=== PATIENT | female | born 1955 | race Caucasian/White ===

== ENCOUNTER 2018-05-06 08:10 | Emergency (ER) | payer BC ==
[~2018-05-06] VITALS: Ht 165.1 cm; Wt 122.5 kg
[~2018-05-06 08:10] MED LIST: AMLO10 PO; ATEN25; FURO40; FURO40 PO; GLIM2 PO; LOSA50 PO; METF500; METF500 PO; POTA10T PO; POTA8
[2018-05-06 09:25] LABS: BASOPHILS ABSOLUTE AUTO 0.05 K/mm3 (0.00-0.23); BASOPHILS PERCENT AUTO 1 % (0-2); EOSINOPHILS ABSOLUTE AUTO 0.22 K/mm3 (0.00-0.68); EOSINOPHILS PERCENT AUTO 3 % (0-6); Hemoglobin 12.6 g/dL (11.5-16.0); IMMATURE GRAN ABSOLUTE AUTO 0.04 K/mm3 (0.00-0.10); IMMATURE GRAN PERCENT AUTO 1 % (0-1); LYMPHOCYTES ABSOLUTE AUTO 2.14 K/mm3 (0.84-5.20); LYMPHOCYTES PERCENT AUTO 26 % (21-46); MONOCYTES PERCENT AUTO 5 % (4-13); Mean Corpuscular HGB 28.3 pg (26.0-34.0); Mean Corpuscular HGB Conc 31.5 g/dL (31.5-36.5); Mean Corpuscular Volume 90 fL (80-100); Mean Platelet Volume 10.5 fL (9.1-12.4); NEUTROPHILS ABSOLUTE AUTO 5.49 K/mm3 (1.96-9.15); NEUTROPHILS PERCENT AUTO 66 % (41-73); Platelet Count 227 K/mm3 (150-400); RDW Standard Deviation 42.7 fL (35.1-46.3); Red Blood Cell Count 4.46 M/mm3 (3.80-5.20); White Blood Cell Count 8.34 K/mm3 (4.00-11.30)
[2018-05-06 09:45] LABS: Anion Gap 10 mmol/L (6-16); Blood Urea Nitrogen 11 mg/dL (8-24); Bun/Creatinine Ratio 20.9 (12.0-20.0); CO2, Blood 27 mmol/L (21-32); Calcium, Blood 8.9 mg/dL (8.5-10.1); Chloride, Blood 102 mmol/L (98-108); Creatinine, Blood 0.53 mg/dL (0.40-1.00); Glomerular Filtration Rate >60 (60-); Glucose, Blood 293 mg/dL (70-99); Potassium, Blood 3.7 mmol/L (3.5-5.5); Sodium, Blood 139 mmol/L (136-145)
[2018-05-06] MEDS ORDERED: METO50ER PO (10:00)
[2018-05-06 10:01] LABS: Appearance, Urine Clear (Clear); Bilirubin, Urine Neg (Neg); Blood, Urine Neg (Neg); Color, Urine Yellow (P-Yellow); Glucose Qualitative, Urine 4+ (Neg); Ketones, Urine 1+ (Neg); Leukocyte Esterase, Urine Neg (Neg); Nitrite, Urine Neg (Neg); Protein, Urine Neg (Neg); Urobilinogen, Urine NORM (Normal); pH, Urine 6.5 (5.0-8.0)
[2018-05-06] MEDS ORDERED: OLME20 PO (10:01)
[2018-05-06] MEDS ORDERED: Zofran4 MG PO (11:06)
[2018-05-06] MEDS ORDERED: Motion Sickness25 M1 PO (11:06)
[2018-05-06] MEDS ORDERED: DIAZ2 PO (11:06)
== END 2018-05-06 11:31 | disposition home or self-care (01) ==
LOC: ER 08:10
PROVIDERS: Emergency Medicine
DX: H83.09 Labyrinthitis, unspecified ear (principal); Z88.8 Allergy status to other drugs, medicaments and biological substances; Z79.899 Other long term (current) drug therapy; Z79.84 Long term (current) use of oral hypoglycemic drugs; I10 Essential (primary) hypertension; E11.9 Type 2 diabetes mellitus without complications
CPT/HCPCS: 71045; 80048; 81003; 85025; 93005; 93010; 96374; 96375; 99284-25; J2060; J2405

== ENCOUNTER → 2021-04-17 | Outpatient (CLI) | payer MEDICARE, BC ==
[~2021-04-17] MED LIST changes: +DIAZ2 PO; +METO50ER PO; +Motion Sickness25 M1 PO; +OLME20 PO; +Zofran4 MG PO
== END | disposition home or self-care (01) ==
LOC: LAB SHORT 09:45
DX: R30.0 Dysuria (principal); R82.90 Unspecified abnormal findings in urine
CPT/HCPCS: 87077; 87086; 87186

== ENCOUNTER → 2021-08-30 | Outpatient (CLI) | payer MEDICARE, BC | END | disposition home or self-care (01) | LOC: LAB SHORT 09:50 → LAB 09:50 | DX: E11.65 Type 2 diabetes mellitus with hyperglycemia (principal) | CPT/HCPCS: 82043; 83036 ==

== ENCOUNTER 2023-11-26 15:43 | Inpatient (IN) | payer OTHER ==
[~2023-11-26] VITALS: Ht 165.1 cm; Wt 84.2 kg
[~2023-11-26 15:43] MED LIST changes: +K-TAB ER20 ME1 PO; -POTA10T PO
[2023-11-26] MEDS ORDERED: Morphine Sulfate 4 MG/1 ML Injection IV ONE (16:25)
[2023-11-26] MEDS ORDERED: Vancomycin HCL 1,500 MG in NS 250 ML IV ONE (16:25)
[2023-11-26 17:20] LABS: BASOPHILS ABSOLUTE AUTO 0.07 K/mm3 (0.00-0.23); BASOPHILS PERCENT AUTO 1 % (0-2); EOSINOPHILS ABSOLUTE AUTO 0.36 K/mm3 (0.00-0.68); EOSINOPHILS PERCENT AUTO 3 % (0-6); Hematocrit 39.9 % (33.0-51.0); Hemoglobin 12.5 g/dL (11.5-16.0); IMMATURE GRAN ABSOLUTE AUTO 0.26 K/mm3 (0.00-0.10); IMMATURE GRAN PERCENT AUTO 2 % (0-1); LYMPHOCYTES PERCENT AUTO 13 % (21-46); MONOCYTES ABSOLUTE AUTO 1.04 K/mm3 (0.16-1.47); MONOCYTES PERCENT AUTO 7 % (4-13); Mean Corpuscular HGB 27.7 pg (26.0-34.0); Mean Corpuscular HGB Conc 31.3 g/dL (31.5-36.5); Mean Corpuscular Volume 88 fL (80-100); Mean Platelet Volume 10.2 fL (9.1-12.4); NEUTROPHILS ABSOLUTE AUTO 10.72 K/mm3 (1.96-9.15); NEUTROPHILS PERCENT AUTO 75 % (41-73); NRBC ABSOLUTE 0.04 K/mm3 (0.00-0.02); NRBC Auto 0.3 /100 WBC (0.0-0.2); Platelet Count 382 K/mm3 (150-400); RDW Coefficient Variation 17.1 % (11.7-14.2); RDW Standard Deviation 54.4 fL (35.1-46.3); Red Blood Cell Count 4.52 M/mm3 (3.80-5.20); White Blood Cell Count 14.35 K/mm3 (4.00-11.30)
[2023-11-26 17:51] LABS: Anion Gap 6 mmol/L (3-11); Blood Urea Nitrogen 31 mg/dL (8-24); Bun/Creatinine Ratio 39.2 (12.0-20.0); C-REACTIVE PROTEIN, EXT RANGE >19.000 mg/dL (0.000-0.300); CO2, Blood 30 mmol/L (21-32); Calcium, Blood 9.8 mg/dL (8.5-10.1); Chloride, Blood 102 mmol/L (98-108); Creatinine, Blood 0.79 mg/dL (0.40-1.00); Glomerular Filtration Rate 81 (60-); Glucose, Blood 232 mg/dL (70-99); Potassium, Blood 4.5 mmol/L (3.5-5.5); Sodium, Blood 133 mmol/L (136-145)
[2023-11-26] MEDS ORDERED: METO25ER PO ×2 (18:33→18:34)
[2023-11-26] MEDS ORDERED: AMIODARONE HCL200 M1 PO (18:34)
[2023-11-26] MEDS ORDERED: DILT30 PO (18:34)
[2023-11-26] MEDS ORDERED: ELIQUIS5 M2 PO (18:34)
[2023-11-26] MEDS ORDERED: LISI20 PO (18:35)
[2023-11-26] MEDS ORDERED: FURO20 PO (18:35)
[2023-11-26] MEDS ORDERED: Flomax0.4 MG PO (18:36)
[2023-11-26] MEDS ORDERED: Acetaminophen 325 MG TABLET PO PRN (22:25)
[2023-11-26 22:46] LABS: Source, Urine Foley catheter
[2023-11-26 22:52] LABS: Bilirubin, Urine Neg (Neg); Blood, Urine 3+ (Neg); Glucose Qualitative, Urine Neg (Neg); Ketones, Urine Neg (Neg); Leukocyte Esterase, Urine 3+ (Neg); Nitrite, Urine Pos (Neg); Protein, Urine 1+ (Neg); Urobilinogen, Urine 1+ (Normal)
[2023-11-26] MEDS ORDERED: NS 1,000 ML IV SCH (23:00)
[2023-11-26] MEDS ORDERED: Lactobacil 2-S.Thermo-Bifido 1 1 Cap PO SCH (23:00)
[2023-11-26 23:06] LABS: Amorphous Light (0-Heavy); Appearance, Urine Hazy (Clear); Bacteria Mod /hpf; Color, Urine Yellow (P-Yellow); Red Blood Cells, Urine 0-2 /hpf (0-2); Squamous Epithelial Cells Not Seen /hpf (Few); White Blood Cells, Urine TNTC /hpf (0-5)
[2023-11-27] MEDS ORDERED: Ampicillin Sod/Sulbactam Sod 1.5 GM in NS 100 ML IV SCH (00:42)
[2023-11-27 02:05] LABS: BASOPHILS ABSOLUTE AUTO 0.12 K/mm3 (0.00-0.23); BASOPHILS PERCENT AUTO 1 % (0-2); EOSINOPHILS ABSOLUTE AUTO 0.42 K/mm3 (0.00-0.68); EOSINOPHILS PERCENT AUTO 4 % (0-6); Hematocrit 36.8 % (33.0-51.0); Hemoglobin 11.2 g/dL (11.5-16.0); IMMATURE GRAN ABSOLUTE AUTO 0.25 K/mm3 (0.00-0.10); IMMATURE GRAN PERCENT AUTO 2 % (0-1); LYMPHOCYTES ABSOLUTE AUTO 1.89 K/mm3 (0.84-5.20); LYMPHOCYTES PERCENT AUTO 16 % (21-46); MONOCYTES ABSOLUTE AUTO 0.87 K/mm3 (0.16-1.47); MONOCYTES PERCENT AUTO 7 % (4-13); Mean Corpuscular HGB 28.1 pg (26.0-34.0); Mean Corpuscular HGB Conc 30.4 g/dL (31.5-36.5); Mean Corpuscular Volume 92 fL (80-100); Mean Platelet Volume 9.9 fL (9.1-12.4); NEUTROPHILS PERCENT AUTO 70 % (41-73); NRBC ABSOLUTE 0.03 K/mm3 (0.00-0.02); NRBC Auto 0.3 /100 WBC (0.0-0.2); Platelet Count 348 K/mm3 (150-400); RDW Coefficient Variation 17.3 % (11.7-14.2); RDW Standard Deviation 58.9 fL (35.1-46.3); Red Blood Cell Count 3.99 M/mm3 (3.80-5.20); White Blood Cell Count 11.75 K/mm3 (4.00-11.30)
[2023-11-27 02:47] VITALS: BP 108/64
[2023-11-27] MEDS ORDERED: BASAGLAR K100 UNIT/1 SC (03:24)
--- NOTE | 2023-11-27 05:19 | NUR ---
PT O2 SAT DROPPING TO 75% WHILE PT SLEEPING. PT ABLE TO BE WOKEN AND IS AOX4 AND NO C/O OF SOB. PT SATS IMPROVE WHILE AWAKE. PT REPOSITIONED WITH HOB RAISED. PT MAINTAINED O2 SATS LOW 90S BUT NOW IS DROPPING BACK INTO MID 70S WHILE ASLEEP. 2L O2 PLACED BY NASAL CANNULA. RESIDENT CALLED AND AWAITING CALL BACK AT THIS TIME.
--- NOTE | 2023-11-27 06:21 | NUR ---
RECEIVED PT FROM ED BY STRETCHER. PT ACCOMPANIED BY FAMILY. PT IS AOX4. PT WAS TRANSFERRED TO BED. WOUND PHOTOS TAKEN OF LARGE PRESSURE ULCER TO PT BUTTOCKS/SACRUM. PT DID HAVE AN INCONTINENT STOOL ON ARRIVAL AND WAS CLEANED, LINENS CHANGED. PT ARRIVED WITH WAGNER IN PLACE, URINE IS YELLOW AND HAZY. PT AND FAMILY ABLE TO ANSWER ALL ADMIT QUESTIONS. PT WAS PLACED IN CONTACT PRECAUTIONS FOR POSSIBLE MRSA/ HX OF ESBL IN URINE/ POSSIBLE C.DIFF (HX DIARRHEA X3 DAYS). PT DID DESAT WHILE SLEEPING AND IS NOW ON 2LO2. PT WAS MAINTAINING GOOD O2 SATS WHILE AWAKE.
--- NOTE | 2023-11-27 06:29 | NUR ---
PT WAS IN A.FIB UPON ADMIT BUT HAS SINCE CONVERTED BACK TO A SINUS RHYTHM IN THE 80S.
[2023-11-27 07:26] LABS: Albumin, Blood 1.8 g/dL (3.4-5.0); Albumin/Globulin Ratio 0.4 (0.8-1.8); Bilirubin, Total 0.6 mg/dL (0.1-1.0); Bun/Creatinine Ratio 34.1 (12.0-20.0); Creatinine, Blood 0.79 mg/dL (0.40-1.00); Globulin, Blood 4.2 g/dL (2.2-4.0); Potassium, Blood 4.1 mmol/L (3.5-5.5)
[2023-11-27 08:11] VITALS: BP 86/53
[2023-11-27 08:50] VITALS: BP 103/50
[2023-11-27] MEDS ORDERED: Tamsulosin HCl 0.4 MG Cap PO SCH (09:00)
[2023-11-27] MEDS ORDERED: Enoxaparin 40 MG/0.4 ML SYR SC SCH (09:00)
[2023-11-27] MEDS ORDERED: Amiodarone HCl 200 MG Tab PO SCH (09:00)
[2023-11-27] MEDS ORDERED: Lisinopril 20 MG Tab PO SCH (09:00)
[2023-11-27] MEDS ORDERED: Apixaban 5 MG Tab PO SCH (09:00)
[2023-11-27 12:43] VITALS: BP 112/51
[2023-11-27 12:55] LABS: Adenovirus F 40/41 Not Detected (NOT DETECT); Astrovirus Not Detected (NOT DETECT); Campylobacter Sp Not Detected (NOT DETECT); Cryptosporidium Not Detected (NOT DETECT); Cyclospora Cayetanensis Not Detected (NOT DETECT); E. Coli O157 Not Detected (NOT DETECT); Entamoeba Histolytica Not Detected (NOT DETECT); Enteroaggregative E. coli-EAEC Not Detected (NOT DETECT); Enteropathogenic E. coli-EPEC Not Detected (NOT DETECT); Enterotoxigenic E. coli-ETEC Not Detected (NOT DETECT); Giardia Lamblia Not Detected (NOT DETECT); Norovirus GI/GII Not Detected (NOT DETECT); Plesiomonas Shigelloides Not Detected (NOT DETECT); Rotavirus A Not Detected (NOT DETECT); Salmonella Sp Not Detected (NOT DETECT); Sapovirus Not Detected (NOT DETECT); Shiga Toxin-prod E. coli-STEC Not Detected (NOT DETECT); Shigella/Enteroin E. coli-EIEC Not Detected (NOT DETECT); Vibrio Cholerae Not Detected (NOT DETECT); Vibrio Sp Not Detected (NOT DETECT); Yersinia Enterocolitica Not Detected (NOT DETECT)
[2023-11-27] MEDS ORDERED: HYDRA50 PO (12:57)
[2023-11-27] MEDS ORDERED: HydrALAZINE HCl 50 MG Tab PO PRN (15:20)
[2023-11-27 16:45] VITALS: BP 106/48
--- NOTE | 2023-11-27 17:18 | NUR ---
THIS RN AT BEDSIDE TO TURN PT AND PERFORM PAPI CARE. PT HAS ANOTHER EPISODE OF INCONTINENCE. PT C/O PAIN FROM SORES ON BUTTOCKS. A MODERATE AMOUNT OF BRIGHT RED BLOOD NOTICED ON PAPI AREA THAT APPEARS TO BE COMING FROM VAGINAL AREA. NO BLOOD SEEN IN WAGNER TUBING. NO VISABLE SORES OR CUTS SEEN A SOURCE OF BLEEDING. PT DENIES ANY ABD OR PELVIC PAIN. WAGNER IS DRAINING WELL. DR RENNER CALLED AND IS GOING TO DC LOVENOX, ORDER A REPEAT CBC AND A PELVIC ULTRASOUND. PT NOT IN ANY DISTRESS AT THIS TIME.
[2023-11-27 18:00] LABS: BASOPHILS ABSOLUTE AUTO 0.11 K/mm3 (0.00-0.23); BASOPHILS PERCENT AUTO 1 % (0-2); EOSINOPHILS ABSOLUTE AUTO 0.51 K/mm3 (0.00-0.68); EOSINOPHILS PERCENT AUTO 5 % (0-6); Hematocrit 41.5 % (33.0-51.0); Hemoglobin 12.9 g/dL (11.5-16.0); IMMATURE GRAN ABSOLUTE AUTO 0.41 K/mm3 (0.00-0.10); IMMATURE GRAN PERCENT AUTO 4 % (0-1); LYMPHOCYTES ABSOLUTE AUTO 1.62 K/mm3 (0.84-5.20); LYMPHOCYTES PERCENT AUTO 15 % (21-46); MONOCYTES ABSOLUTE AUTO 0.96 K/mm3 (0.16-1.47); MONOCYTES PERCENT AUTO 9 % (4-13); Mean Corpuscular HGB 27.7 pg (26.0-34.0); Mean Corpuscular HGB Conc 31.1 g/dL (31.5-36.5); Mean Corpuscular Volume 89 fL (80-100); Mean Platelet Volume 9.4 fL (9.1-12.4); NEUTROPHILS ABSOLUTE AUTO 7.46 K/mm3 (1.96-9.15); NEUTROPHILS PERCENT AUTO 67 % (41-73); NRBC ABSOLUTE 0.02 K/mm3 (0.00-0.02); NRBC Auto 0.2 /100 WBC (0.0-0.2); Platelet Count 385 K/mm3 (150-400); RDW Coefficient Variation 17.2 % (11.7-14.2); Red Blood Cell Count 4.65 M/mm3 (3.80-5.20); White Blood Cell Count 11.07 K/mm3 (4.00-11.30)
--- NOTE | 2023-11-27 18:44 | NUR ---
PT ALERT AND ORIENTED X4. PT WAS HYPOTENSIVE OFF AND ON THROUGOUT THE SHIFT. PROVIDER AWARE. PT HAS AN INDWELLING WAGNER THAT HAS BEEN DRAINING ALL DAY. PT CONTINUED TO HAVE SEVERAL LOOSE INCONTINENT STOOLS THROUGHOUT SHIFT. PT HAS BEEN TURNED Q2 HOURS AND WOUNDS HAVE BEEN LEFT OPEN TO DRY OUT. PT CAME AND WORKED WITH PT AND STATED THAT SHE NEEDS TO STAY A LIFT TRANSFER. SEE PRIOR NOTED FOR FURTHER CAHNGES. NO OTHER MEDICAL CHANGES HAPPENED DURING SHIFT AND PT IS NOT IN ANY DISTRESS.
[2023-11-27 19:59] VITALS: BP 110/45
[2023-11-27] MEDS ORDERED: Banana Flakes/Tos 1 EA Powder Pack PO SCH (21:00)
[2023-11-27] MEDS ORDERED: Insulin Glargine-Yfgn 100 Unit/mL 3 ML SYR SC SCH (21:00)
[2023-11-27] MEDS ORDERED: Arginine/Glutamine/Calcium Hmb 1 Packet PO SCH (21:00)
[2023-11-27] MEDS ORDERED: Enoxaparin 100 MG/ML 1ML SYR SC SCH (21:00)
[2023-11-27] MEDS ORDERED: NS 250 ML IV PRN (22:00)
[2023-11-28 03:04] VITALS: BP 118/50
[2023-11-28] MEDS ORDERED: NS 100 ML IV ONE ×4 (03:18→23:29)
[2023-11-28] MEDS ORDERED: Ampicillin Sod/Sulbactam Sod 1.5 GM ONE ×4 (03:18→23:29)
--- NOTE | 2023-11-28 04:48 | NUR ---
SHIFT SUMMARY NOC PT A/O X 4. TRANSFER FROM PCU 07. PLEASANT AND COOPERATIVE WITH CARE. VSS. PT HAS STAGE 2 PRESSURE INJURY ON BL BUTTOCKS OPEN TO AIR, Q2H TURNS. HAS WAGNER IN PLACE DRAINING TO GRAVITY. ON TELE SINUS RHYTHM IN 70'S -80'S. PT HAS NOT REQUIRED AN PAIN RX FOR PAIN IN BUTTOCKS. PT HAS SOME MILD VAGINAL BLEEDING THAT STARTED YESTERDAY, IS AWARE. PT CURRENTLY RESTING WITH BED IN LOWEST POSITION, AND CALL LIGHT WITHIN REACH.
[2023-11-28 05:44] LABS: Hematocrit 37.4 % (33.0-51.0); Hemoglobin 11.5 g/dL (11.5-16.0); Mean Corpuscular HGB 27.8 pg (26.0-34.0); Mean Corpuscular HGB Conc 30.7 g/dL (31.5-36.5); Mean Corpuscular Volume 90 fL (80-100); Mean Platelet Volume 9.8 fL (9.1-12.4); Platelet Count 417 K/mm3 (150-400); RDW Coefficient Variation 17.2 % (11.7-14.2); RDW Standard Deviation 57.2 fL (35.1-46.3); Red Blood Cell Count 4.14 M/mm3 (3.80-5.20)
[2023-11-28 06:07] LABS: Albumin, Blood 1.7 g/dL (3.4-5.0); Albumin/Globulin Ratio 0.4 (0.8-1.8); Bilirubin, Total 0.5 mg/dL (0.1-1.0); Calcium, Blood 8.9 mg/dL (8.5-10.1); Creatinine, Blood 0.61 mg/dL (0.40-1.00); Potassium, Blood 3.8 mmol/L (3.5-5.5); Total Protein, Blood 5.7 g/dL (6.4-8.2)
[2023-11-28 06:12] LABS: BAND PERCENT MAN 5 % (0-8); BASOPHILS ABSOLUTE MAN 0.11 K/mm3 (0.00-0.23); BASOPHILS PERCENT MAN 1 % (0-2); EOSINOPHILS ABSOLUTE MAN 0.79 K/mm3 (0.00-0.68); EOSINOPHILS PERCENT MAN 7 % (0-6); LYMPHOCYTES ABSOLUTE MAN 2.37 K/mm3 (0.84-5.20); LYMPHOCYTES PERCENT MAN 21 % (21-46); MONOCYTES ABSOLUTE MAN 0.33 K/mm3 (0.16-1.47); MONOCYTES PERCENT MAN 3 % (4-13); MYELOCYTE ABSOLUTE MAN 0.11 K/mm3 (0.00-0.00); MYELOCYTE PERCENT MAN 1 % (0-0); NEUTROPHILS ABSOLUTE MAN 7.57 K/mm3 (1.96-9.15); SEG NEUTROPHILS PERCENT MAN 62 % (41-73); TOTAL CELLS COUNTED 100
[2023-11-28 07:28] VITALS: BP 130/61
[2023-11-28 11:09] VITALS: BP 119/55
[2023-11-28] MEDS ORDERED: Insulin Human Lispro 100 Units/ML 3ML Syringe SC SCH (11:30)
[2023-11-28 14:44] VITALS: BP 139/56
--- NOTE | 2023-11-28 17:46 | NUR ---
PATIENT IS ALERT AND ORIENTED AND COOPERATIVE WITH CARE. WORKED WITH PT AND OT TODAY. SHE WAS ABLE TO STAND WITH 1PA, SHE WAS VERY HESITANT TO DO SO. THE PATIENT'S VISTED TODAY. WOUND CARE PROVIDED. REPOSITIONED WITH 2PA AND PILLOWS USED TO KEEP HER OFF HER BACK. INCONTINENT OF STOOL. WAGNER IN PLACE. VAGINAL BLEEDING, DR. RENNER IS AWARE.
[2023-11-28 19:58] VITALS: BP 126/58
[2023-11-28] MEDS ORDERED: Apixaban 5 MG Tab PO SCH (21:00)
[2023-11-29 02:33] VITALS: BP 127/54
[2023-11-29] MEDS ORDERED: NS 100 ML IV ONE (05:14)
[2023-11-29] MEDS ORDERED: Ampicillin Sod/Sulbactam Sod 1.5 GM ONE (05:14)
--- NOTE | 2023-11-29 06:09 | NUR ---
SHIFT SUMMARY: Pt is admitted for infected pressure ulcer and is a full code. Is alert and able to make needs known. ADLs have been 2p during shift but did not get out of bed during shift. Stated that she did have some pain but when offered to have some PRN pain management she declined and stayed with just positioning. Antione reports sinus in the 90s. Folly in place and draining clear taniya urine. On contact ISO for ESBL.
[2023-11-29 07:47] VITALS: BP 124/51
[2023-11-29] MEDS ORDERED: Trimethoprim/Sulfamethoxazole DS Tab PO SCH (10:00)
[2023-11-29] MEDS ORDERED: Metoprolol Succinate 25 MG TABCR PO SCH (10:00)
[2023-11-29] MEDS ORDERED: Insulin Regular 100 UNIT/ML 10ML Vial SC SCH (11:30)
--- NOTE | 2023-11-29 17:35 | NUR ---
SHIFT SUMMARY: PT A/O X4. PLEASANT AND COOPERATIVE WITH CARE. PT WORKED WITH OT THIS SHIFT. AGREEABLE TO SIT AT BEDSIDE BUT REFUSED TO STAND OOB. RECLINER PLACED IN ROOM PER OT REQUEST. PT STILL HAVING FREQUENT DIARRHEA. WAGNER IN PLACE DRAINING DANIEL URINE TO GRAVITY. ROTATING Q2 D/T STAGE 2 PU ON BUTTOCK. DENIED PAIN MEDICATION. CALL LIGHT IN REACH. BED IN LOWEST POSITION.
[2023-11-29 19:32] VITALS: BP 108/56
[2023-11-29] MEDS ORDERED: Insulin Glargine-Yfgn 100 Unit/mL 3 ML SYR SC SCH (21:00)
[2023-11-30 03:05] VITALS: BP 121/49
[2023-11-30 07:43] VITALS: BP 134/68
[2023-11-30] MEDS ORDERED: MASOPHEN325 M3 PO (10:21)
[2023-11-30] MEDS ORDERED: JUVEN PACKET1 EAC3 PO (10:21)
[2023-11-30] MEDS ORDERED: HUMULIN R100 UNIT/2 IV (10:22)
[2023-11-30] MEDS ORDERED: BANATROL PLUS1 EAC1 PO (10:22)
[2023-11-30] MEDS ORDERED: SULFAMETHOXAZO1 EAC1 PO (10:23)
--- NOTE | 2023-11-30 11:56 | NUR ---
SHIFT/DISCHARGE SUMMARY: PATIENT A/OX4, PLEASANT AND COOPERATIVE c CARE. PATIENT HAS PRESSURE ULCER TO COCCYX. REFUSED DRESSING CHANGED TO COCCYX, PER PATIENT DR. GARY TOLD HER GLASS SANDER BELT. DENIES CP/PRESSURE, SOB, N/V AND DIZZINESS. PATIENT ON TELE, SR HR IN THE MID 70'S BPM c OCCASIONAL 1ST DHB. PATIENT HAS CHRONIC WAGNER, PATENT DRAINING DANIEL COLOR URINE TO GRAVITY. PATIENT REFUSED INSULIN COVERAGE THIS AM. PATIENT REPOSITIONED. VITAL SIGNS REVIEWED. PIV DC'D BY LOU HUMPHREYS. PATIENT DISCHARGE TO [facility]. DISCHARGE MEDS WAS FAXED BY SCHOOL [employer]PERATIONS MANAGER TO [facility]. DISCHARGE INSTRUCTIONS PACKET GIVEN TO [facility]. ALL PATIENT PERSONAL BELONGINGS WERE SENT c THE PATIENT. PATIENT LEFT THE ROOM AT 1130 TRANSPORTED VIA WHEELCHAIR. ATTEMPT TO CALL [facility] THIS RN PLACED ON HOLD FOR 15 MINS, WILL TRY TO CALLING BACK THE FACILITY LATER ON.
[2023-11-30] MEDS ORDERED: Insulin Glargine-Yfgn 100 Unit/mL 3 ML SYR SC SCH (21:00)
== END 2023-11-30 13:34 | disposition hospice, inpatient (51) | DRG 380 ==
LOC: ER 15:43 → ERHOLD 22:25 → PCU 22:25 → MEDS 22:25 → PCU 11-27 02:33 → MEDS 11-27 22:18 → ENPENDDIS 11-30 10:37 → MEDS 11-30 13:34
PROVIDERS: Emergency Medicine; Family Medicine Adult Medicine; Internal Medicine; Nurse Practitioner Acute Care; ADMIT Internal Medicine
DX: L89.152 Pressure ulcer of sacral region, stage 2 (principal); T83.511A Infection and inflammatory reaction due to indwelling urethral catheter, initial encounter; Y84.6 Urinary catheterization as the cause of abnormal reaction of the patient, or of later complication, without mention of misadventure at the time of the procedure; L03.312 Cellulitis of back [any part except buttock and flank]; I48.0 Paroxysmal atrial fibrillation; I10 Essential (primary) hypertension; L89.302 Pressure ulcer of unspecified buttock, stage 2; N93.9 Abnormal uterine and vaginal bleeding, unspecified; E11.9 Type 2 diabetes mellitus without complications; D73.5 Infarction of spleen; Z88.1 Allergy status to other antibiotic agents; Z88.8 Allergy status to other drugs, medicaments and biological substances; Z79.01 Long term (current) use of anticoagulants; Z79.4 Long term (current) use of insulin; Z79.811 Long term (current) use of aromatase inhibitors; Z79.899 Other long term (current) drug therapy; Z74.01 Bed confinement status; Z91.199 Patient's noncompliance with other medical treatment and regimen due to unspecified reason; Z79.84 Long term (current) use of oral hypoglycemic drugs
CPT/HCPCS: 36415; 51702; 72193; 76856; 80048; 80053; 81001; 82947; 83735; 85025; 85651; 86140; 87077; 87086; 87186; 87507; 94760; 96365-59; 96366-59; 97110; 97162; 97166; 97530; 99285-25; A9270; J0295; J1815; J2270; J3370; J7030; J7050; Q9967